=== PATIENT | female | born 1965 | race African-American/Black ===

== ENCOUNTER 2017-04-22 12:29 | Emergency (ER) | payer OTHER ==
[2017-04-22] MEDS ORDERED: Ibuprofen 800 MG TAB ONE (12:54)
== END 2017-04-22 13:06 | disposition home or self-care (01) ==
LOC: NAV ERS 12:29
DX: M54.2 Cervicalgia (principal); R19.7 Diarrhea, unspecified; K08.89 Other specified disorders of teeth and supporting structures; F43.20 Adjustment disorder, unspecified; M62.838 Other muscle spasm; K21.9 Gastro-esophageal reflux disease without esophagitis; I73.9 Peripheral vascular disease, unspecified; F32.9 Major depressive disorder, single episode, unspecified
CPT/HCPCS: 99283

== ENCOUNTER 2017-07-11 12:16 | Emergency (ER) | payer OTHER | END 2017-07-11 12:55 | disposition home or self-care (01) | LOC: NAV ERS 12:16 | DX: K02.9 Dental caries, unspecified (principal); F32.9 Major depressive disorder, single episode, unspecified; K03.81 Cracked tooth; I73.9 Peripheral vascular disease, unspecified; K21.9 Gastro-esophageal reflux disease without esophagitis | CPT/HCPCS: 99282 ==

== ENCOUNTER 2017-08-09 14:05 | Emergency (ER) | payer OTHER | END 2017-08-09 15:20 | disposition home or self-care (01) | LOC: NAV ERS 14:05 | DX: J06.9 Acute upper respiratory infection, unspecified (principal); K21.9 Gastro-esophageal reflux disease without esophagitis; I73.9 Peripheral vascular disease, unspecified; F32.9 Major depressive disorder, single episode, unspecified; Z79.899 Other long term (current) drug therapy | CPT/HCPCS: 99283 ==

== ENCOUNTER 2017-11-17 12:59 | Emergency (ER) | payer OTHER ==
[2017-11-17 13:45] LABS: #Basophils 0.1 thou/uL (0.0-0.2); #Eosinphils 0.2 thou/uL (0.0-0.7); #Lymphocytes 2.9 thou/uL (1.20-3.40); #Monocytes 0.6 thou/uL (0.11-0.59); #Neutrophils 2.4 thou/uL (1.40-6.50); %Basophils 1.6 % (0.0-1.0); %Eosinophils 3.2 % (0.0-10.0); %Lymphocytes 46.8 % (21.0-51.0); %Monocytes 9.9 % (0.0-10.0); %Neutrophils 38.5 % (42.0-75.0); Hemoglobin 14.2 g/dL (12.0-16.0); Mean Corpuscular Hemoglobin 28.5 pg (27.0-31.0); Mean Corpuscular Volume 89.1 fl (81.0-99.0); Mean Platelet Volume 6.2 fL (7.4-10.4); Platelet Count 336 thou/uL (130-400); Red Blood Cell (RBC) Count 4.99 mill/uL (4.20-5.40); White Blood Cell (WBC) Count 6.2 thou/uL (4.8-10.8)
[2017-11-17] MEDS ORDERED: Meclizine HCl 25 MG TAB ONE (13:48)
--- NOTE | 2017-11-17 14:00 | RAD ---
AP VIEW CHEST: HISTORY: A 52-year-old with a history of vertigo. FINDINGS: AP view chest is obtained. The lungs are well aerated. No evidence of active intrathoracic disease is seen. No evidence of effusions, pneumonia, or pneumothorax is seen. IMPRESSION: Unremarkable AP view chest. POS: [facility]
[2017-11-17 14:03] LABS: ALT (SGPT) 37 U/L (8-55); AST (SGOT) 32 U/L (5-34); Alkaline Phosphatase 83 U/L (40-150); Anion Gap 15 mmol/L (10-20); BUN (Urea Nitrogen) 13 mg/dL (9.8-20.1); Bilirubin, Total 0.4 mg/dL (0.2-1.2); Calc. Creatinine Clearance 0 mL/min (70-130); Calcium 9.3 mg/dL (7.8-10.44); Carbon Dioxide 25 mmol/L (22-29); Chloride 101 mmol/L (98-107); Estimated GFR-MDRD Greater than 90; Globulin 4.5 g/dL (2.4-3.5); Glucose 90 mg/dL (70-105); Potassium 3.8 mmol/L (3.5-5.1); Protein, Total 8.5 g/dL (6.0-8.3); Sodium 137 mmol/L (136-145)
[2017-11-17 14:05] LABS: CKMB 1.9 ng/mL (0-6.6); Troponin I Less than 0.010 ng/mL (< 0.028)
[2017-11-17 17:20] LABS: Troponin I Less than 0.010 ng/mL (< 0.028)
== END 2017-11-17 17:43 | disposition home or self-care (01) ==
LOC: NAV ERS 12:59
DX: F43.0 Acute stress reaction (principal); R42 Dizziness and giddiness; R07.9 Chest pain, unspecified; K21.9 Gastro-esophageal reflux disease without esophagitis; F32.9 Major depressive disorder, single episode, unspecified
CPT/HCPCS: 71045; 80053; 82553; 84484; 85025; 93005; 96360

== ENCOUNTER 2018-06-03 14:23 | Emergency (ER) | payer OTHER ==
[2018-06-03] MEDS ORDERED: Ketorolac Tromethamine 60 MG/2 ML VIAL ONE (14:59)
== END 2018-06-03 15:11 | disposition home or self-care (01) ==
LOC: NAV ERS 14:23
DX: J06.9 Acute upper respiratory infection, unspecified (principal); K21.9 Gastro-esophageal reflux disease without esophagitis; F32.9 Major depressive disorder, single episode, unspecified
CPT/HCPCS: 96372; J1885

== ENCOUNTER 2018-11-26 04:44 | Emergency (ER) | payer OTHER ==
[2018-11-26 05:31] LABS: #Basophils 0.1 thou/uL (0.0-0.2); #Eosinphils 0.1 thou/uL (0.0-0.7); #Monocytes 0.5 thou/uL (0.11-0.59); #Neutrophils 2.7 thou/uL (1.40-6.50); %Basophils 1.3 % (0.0-1.0); %Eosinophils 2.7 % (0.0-10.0); %Lymphocytes 36.5 % (21.0-51.0); %Neutrophils 50.5 % (42.0-75.0); Hemoglobin 13.4 g/dL (12.0-16.0); Mean Corpuscular Hemoglobin 28.3 pg (27.0-31.0); Mean Corpuscular Volume 91.2 fL (78.0-98.0); Mean Platelet Volume 5.5 fL (7.4-10.4); Platelet Count 319 thou/uL (130-400); RBC Distribution Width 12.2 % (11.5-14.5); Red Blood Cell (RBC) Count 4.74 mill/uL (4.20-5.40); White Blood Cell (WBC) Count 5.4 thou/uL (4.8-10.8)
[2018-11-26 05:48] LABS: ALT (SGPT) 45 U/L (8-55); AST (SGOT) 62 U/L (5-34); Albumin 4.5 g/dL (3.5-5.0); Alkaline Phosphatase 99 U/L (40-150); Anion Gap 15 mmol/L (10-20); BUN (Urea Nitrogen) 15 mg/dL (9.8-20.1); Bilirubin, Total 0.5 mg/dL (0.2-1.2); Calc. Creatinine Clearance 0 mL/min (70-130); Calcium 9.7 mg/dL (7.8-10.44); Carbon Dioxide 26 mmol/L (22-29); Chloride 102 mmol/L (98-107); Estimated GFR-MDRD Greater than 90; Globulin 4.4 g/dL (2.4-3.5); Glucose 129 mg/dL (70-105); Lipase 6 U/L (8-78); Potassium 3.6 mmol/L (3.5-5.1); Protein, Total 8.9 g/dL (6.0-8.3); Sodium 139 mmol/L (136-145)
[2018-11-26 06:44] LABS: Bilirubin Negative (Negative); Blood, Urine Negative (Negative); Clarity Cloudy (Clear); Glucose, Urine (Dipstick) Negative (Negative); Leukocyte Negative (Negative); Nitrite Negative (Negative); Protein, Urine (Dipstick) Negative (Neg-Trace); pH, Urine 8.5 (5.0-9.0)
--- NOTE | 2018-11-26 07:14 | CT ---
CT ABDOMEN AND PELVIS NONCONTRAST CT LUMBAR SPINE WITH 3D REFORMATTED IMAGING: INDICATION: Pain, cramping. FINDINGS: There is a laparoscopic gastric band in place. Minimal volume loss seen at the lung base. There is moderate distention of the gallbladder with associated internal hypodensity indicating cholelithiasis . No evidence of urolithiasis or obstructive uropathy. No free air. Calcifications of the pelvis i ndicate phleboliths. Otherwise, the solid abdominal organs, bowel, lymph nodes, and vasculature limi t assessment on the basis of noncontrast technique. CT imaging of the lumbar spine reveals a minimally displaced fracture, age indeterminate, involving t he right transverse process at L4. Otherwise, the vertebral body heights and alignment of the lumbar spine are maintained. There is mild end plate degenerative change of the lower thoracic spine incid entally noted. IMPRESSION: 1. Evidence of gallbladder distention with internal hyperdensity indicating cholelithiasis. Recomme nd gallbladder ultrasound in light of patient's findings to further evaluate. 2. Minimally displaced right transverse process fracture of L4, age indeterminate. Correlate clinic ally to exclude evidence of recent injury to account for patient's abdominal pain. 3. Evaluation is otherwise limited on the basis of noncontrast technique. POS: [facility]
== END 2018-11-26 06:57 | disposition short-term general hospital (02) ==
LOC: NAV ERS 04:44
DX: R10.13 Epigastric pain (principal); K21.9 Gastro-esophageal reflux disease without esophagitis; Z79.899 Other long term (current) drug therapy
CPT/HCPCS: 74176; 80053; 81003; 83690; 85025; 93005; 96372; J0500

== ENCOUNTER 2019-09-22 09:09 | Emergency (ER) | payer OTHER | END 2019-09-22 10:00 | disposition home or self-care (01) | LOC: NAV ERS 09:09 | DX: B34.9 Viral infection, unspecified (principal); J06.9 Acute upper respiratory infection, unspecified; K21.9 Gastro-esophageal reflux disease without esophagitis; F32.9 Major depressive disorder, single episode, unspecified; Z79.899 Other long term (current) drug therapy | CPT/HCPCS: 99283 ==

== ENCOUNTER 2019-10-20 18:27 | Emergency (ER) | payer OTHER ==
[2019-10-20] MEDS ORDERED: Mag-Al Plus 1200 MG/1200 MG/120 MG/30 ML UDCUP ONE (19:32)
[2019-10-20] MEDS ORDERED: Ibuprofen 800 MG TAB ONE (19:34)
[2019-10-20 19:36] LABS: Bilirubin Negative (Negative); Blood, Urine Trace (Negative); Clarity SL HAZY (Clear); Glucose, Urine (Dipstick) Negative (Negative); Leukocyte Moderate (Negative); Nitrite Negative (Negative); Protein, Urine (Dipstick) Negative (Neg-Trace)
[2019-10-20 19:49] LABS: Bacteria/HPF 2+ HPF (None Seen); RBC/HPF 0-3 HPF (0-3)
[2019-10-20] MEDS ORDERED: Nitrofurantoin Macrocrystal 50 MG CAP ONE (20:02)
--- NOTE | 2019-10-20 20:10 | RAD ---
TWO VIEW CHEST: History: Fever Comparison: 07-26-04 FINDINGS: Lungs appear clear. No infiltrate. Heart and mediastinum unremarkable. IMPRESSION: No acute finding. POS: [facility]
== END 2019-10-20 20:10 | disposition home or self-care (01) ==
LOC: NAV ERS 18:27
DX: N39.0 Urinary tract infection, site not specified (principal); K21.9 Gastro-esophageal reflux disease without esophagitis; F32.9 Major depressive disorder, single episode, unspecified; Z79.899 Other long term (current) drug therapy
CPT/HCPCS: 71046; 81003; 81015; 87804

== ENCOUNTER 2020-02-17 13:44 | Emergency (ER) | payer OTHER ==
[2020-02-17] MEDS ORDERED: Ketorolac Tromethamine 60 MG/2 ML VIAL ONE (14:30)
[2020-02-17] MEDS ORDERED: Dexamethasone 4 mg/ml Vial ONE (14:30)
== END 2020-02-17 15:02 | disposition home or self-care (01) ==
LOC: NAV ERS 13:44
DX: M25.532 Pain in left wrist (principal); M54.2 Cervicalgia; K21.9 Gastro-esophageal reflux disease without esophagitis; B19.20 Unspecified viral hepatitis C without hepatic coma; F32.9 Major depressive disorder, single episode, unspecified; I25.2 Old myocardial infarction; Z79.899 Other long term (current) drug therapy
CPT/HCPCS: 93005; 96372; J1100; J1885

== ENCOUNTER 2020-07-09 23:46 | Emergency (ER) | payer OTHER ==
[2020-07-10] MEDS ORDERED: Ketorolac Tromethamine 60 MG/2 ML VIAL ONE (00:24)
[2020-07-10] MEDS ORDERED: predniSONE 20 MG TAB ONE (00:25)
== END 2020-07-10 00:43 | disposition home or self-care (01) ==
LOC: NAV ERS 23:46
DX: J32.9 Chronic sinusitis, unspecified (principal); K21.9 Gastro-esophageal reflux disease without esophagitis; F32.9 Major depressive disorder, single episode, unspecified; Z79.899 Other long term (current) drug therapy
CPT/HCPCS: 96372; 99283; J1885; J7512

== ENCOUNTER 2021-02-13 06:43 | Emergency (ER) | payer BC, OTHER ==
[2021-02-13 07:42] LABS: Bilirubin Small (Negative); Blood, Urine Negative (Negative); Clarity Clear (Clear); Glucose, Urine (Dipstick) Negative (Negative); Ketone, Urine Trace mg/dL (Negative); Leukocyte Negative (Negative); Nitrite Negative (Negative); Protein, Urine (Dipstick) 30 mg/dL (Neg-Trace); pH, Urine 5.5 (5.0-9.0)
[2021-02-13 07:43] LABS: Bacteria/HPF Rare-Few HPF (None Seen); RBC/HPF 0-3 HPF (0-3); Specific Gravity, Urine 1.031 (1.002-1.036); Squamous Epithelial 0-3 HPF (0-3); WBC/HPF 0-3 HPF (0-3)
[2021-02-13] MEDS ORDERED: Ibuprofen 200 MG TAB ONE (07:48)
== END 2021-02-13 08:22 | disposition home or self-care (01) ==
LOC: NAV ERS 06:43
DX: M54.2 Cervicalgia (principal); M54.6 Pain in thoracic spine; K21.9 Gastro-esophageal reflux disease without esophagitis; Z86.19 Personal history of other infectious and parasitic diseases; Z79.899 Other long term (current) drug therapy
CPT/HCPCS: 81003; 81015; 99283

== ENCOUNTER 2021-07-14 08:49 | Emergency (ER) | payer BC ==
[2021-07-14 09:23] LABS: Bilirubin Negative (Negative); Blood, Urine Negative (Negative); Clarity Clear (Clear); Glucose, Urine (Dipstick) Negative (Negative); Ketone, Urine Negative (Negative); Leukocyte Trace (Negative); Nitrite Negative (Negative); Protein, Urine (Dipstick) Negative (Neg-Trace); Specific Gravity, Urine 1.025 (1.005-1.030); pH, Urine 5.5 (5.0-9.0)
[2021-07-14 09:35] LABS: Bacteria/HPF 1+ HPF (None Seen); WBC/HPF 0-3 HPF (0-3)
[2021-07-14 09:46] LABS: RBC/HPF None Seen HPF (0-3)
[2021-07-15 05:11] LABS: Chlam.trachomatis by PCR,Urine Not Detected (NotDetected)
== END 2021-07-14 10:07 | disposition home or self-care (01) ==
LOC: NAV ERS 08:49
DX: J06.9 Acute upper respiratory infection, unspecified (principal); M54.50 Low back pain, unspecified; K21.9 Gastro-esophageal reflux disease without esophagitis
CPT/HCPCS: 81003; 81015; 87086; 87491; 87591; 99283

== ENCOUNTER 2023-02-26 06:39 | Emergency (ER) | payer BC, OTHER ==
[2023-02-26 07:18] LABS: Clarity Cloudy (Clear)
[2023-02-26 07:19] LABS: Leukocyte Large (Negative); Nitrite Positive (Negative); Protein, Urine (Dipstick) Negative (Neg-Trace); pH, Urine 7.5 (5.0-9.0)
[2023-02-26 07:20] LABS: Bilirubin Negative (Negative); Blood, Urine Large (Negative); Glucose, Urine (Dipstick) Negative (Negative); Ketone, Urine 15 mg/dL (Negative); Urobilinogen 0.2 mg/dL (Less than 2)
[2023-02-26 07:22] LABS: CAUTI Indications for Culture Acute Hematuria
[2023-02-26 07:23] LABS: Bacteria/HPF 1+ HPF (None Seen); Mucous/LPF Rare LPF (<2+); RBC/HPF 21-50 HPF (0-3)
[2023-02-26 07:24] LABS: Urine Culture Reflex Yes Yes
[2023-02-26] MEDS ORDERED: Cephalexin 250 MG CAP ONE (07:33)
[2023-02-26] MEDS ORDERED: Phenazopyridine HCl 95 MG TAB ONE (07:33)
== END 2023-02-26 07:44 | disposition home or self-care (01) ==
LOC: NAV ERS 06:39
DX: S93.401A Sprain of unspecified ligament of right ankle, initial encounter (principal); N39.0 Urinary tract infection, site not specified; K21.9 Gastro-esophageal reflux disease without esophagitis; X50.1XXA Overexertion from prolonged static or awkward postures, initial encounter; Z79.899 Other long term (current) drug therapy
CPT/HCPCS: 81001; 87086

== ENCOUNTER 2024-09-20 16:45 | Emergency (ER) | payer BC, OTHER ==
[2024-09-20] MEDS ORDERED: Ondansetron ODT 4 MG TAB ONE (17:21)
[2024-09-20] MEDS ORDERED: Pantoprazole 40 MG DR.TAB ONE (17:22)
[2024-09-20] MEDS ORDERED: Lidocaine Viscous Sol 2% 15 ml UD Cup ONE (17:22)
[2024-09-20] MEDS ORDERED: Mag-Al Plus 1200/1200/120 MG (30 mL) UDCUP ONE (17:22)
== END 2024-09-20 18:30 | disposition home or self-care (01) ==
LOC: NAV ERS 16:45
DX: K52.9 Noninfective gastroenteritis and colitis, unspecified (principal); K21.9 Gastro-esophageal reflux disease without esophagitis; Z79.899 Other long term (current) drug therapy
CPT/HCPCS: 99283; Q0162

== ENCOUNTER 2025-05-12 18:03 | Emergency (ER) | payer BC, SELFPAY | END 2025-05-12 19:15 | disposition home or self-care (01) | LOC: NAV ERS 18:03 | DX: K21.9 Gastro-esophageal reflux disease without esophagitis (principal) | CPT/HCPCS: 93005; 99284 ==

== ENCOUNTER 2025-06-19 16:58 | Emergency (ER) | payer OTHER ==
[2025-06-19] MEDS ORDERED: Naproxen 500 MG TAB ONE (17:17)
== END 2025-06-19 17:22 | disposition home or self-care (01) ==
LOC: NAV ERS 16:58
DX: S16.1XXA Strain of muscle, fascia and tendon at neck level, initial encounter (principal); X50.0XXA Overexertion from strenuous movement or load, initial encounter
CPT/HCPCS: 99283

== ENCOUNTER 2025-07-23 18:18 | Emergency (ER) | payer OTHER ==
[2025-07-23] MEDS ORDERED: Acetaminophen 500 MG TAB ONE (19:55)
[2025-07-23] MEDS ORDERED: Ibuprofen 200 MG TAB ONE (19:55)
== END 2025-07-23 20:49 | disposition home or self-care (01) ==
LOC: NAV ERS 18:18
DX: S20.213A Contusion of bilateral front wall of thorax, initial encounter (principal); R03.0 Elevated blood-pressure reading, without diagnosis of hypertension; V44.5XXA Car driver injured in collision with heavy transport vehicle or bus in traffic accident, initial encounter
CPT/HCPCS: 71250; 72125